=== PATIENT | female | born 1950 | race Caucasian/White ===

== ENCOUNTER 2019-03-13 17:01 | Observation (INO) ==
[2019-03-13 18:00] LABS: Basophils % 0.4 % (0.0-0.8); Eosinophils % 0.5 % (0.00-10.9); Hematocrit 41.4 VOL% (35.7-47.0); Hemoglobin 13.1 GM/DL (12.0-16.0); Immature Granulocytes % 0.3 %; Immature Granulocytes Absolute 0.02 #; Lymphocytes % 39.9 % (21.3-54.2); Mean Corpuscular HGB Conc 31.6 GM/DL (32-36); Mean Corpuscular Volume 89.2 FL (87-102); Mean Platelet Volume 11.6 FL (9.6-12.0); Monocytes % 9.1 % (1.7-12.7); Neutrophils % 49.8 % (38.7-73.9); Platelet Count 210 T/CUMM (130-400); Red Blood Count 4.64 MC/CUMM (3.8-5.5); White Blood Count 7.5 T/CUMM (4-12)
[2019-03-13 18:03] LABS: INR 0.9; PT Patient Result 10.3 SECS
[2019-03-13 18:28] LABS: Albumin 3.7 G/DL (3.4-5.0); Calcium 9.2 MG/DL (8.5-10.1); Osmolality,Calculated 279.4 MOS/KG (273-304); Total Protein 7.5 G/DL (6.4-8.3)
[2019-03-13 18:46] LABS: Barbiturates Screen,Urine Negative (Negative); Benzodiazepines Screen,Urine Negative (Negative); Cannabinoid Screen,Urine Negative (Negative); Opiate Screen,Urine Negative (Negative); Phencyclidine Screen,Urine Negative (Negative)
[2019-03-13 18:48] LABS: Apearance,Urine CLEAR (Clear); Bilirubin,Urine Negative (Negative); Blood, Urine Small mg/dL (Negative); Glucose,Urine (UA) Negative (Negative); Ketones,Urine Negative (Negative); Nitrite,Urine Negative (Negative); Protein,Urine Negative; RBC,Urine 3 /HPF (0-4); Urine Color Yellow (Yellow); Urine Specific Gravity 1.009 (1.001-1.035); Urine Urobilinogen < 2.0 EU/DL (0.2-1.0); WBC,Urine <1 /HPF (0-6)
[2019-03-13] MEDS ORDERED: ONDANSETRON 4 MG/2 ML VIAL IV PRN (19:57)
[2019-03-13] MEDS ORDERED: ACETAMINOPHEN 325 MG TABLET PO PRN (19:57)
[2019-03-13] MEDS ORDERED: LABETALOL 20 MG/4 ML SYRINGE IV PRN (19:57)
[2019-03-13] MEDS: clonazePAM 0.5 MG TABLET PO SCH (22:40)
[2019-03-13] MEDS: busPIRone 15 MG TABLET PO SCH (22:40)
[2019-03-13] MEDS: SODIUM CHLOR 0.45% KCL 20 MEQ 20 MEQ/1,000 ML BAG IV SCH (23:56)
[2019-03-14 02:28] LABS: Basophils % 0.4 % (0.0-0.8); Eosinophils % 0.5 % (0.00-10.9); Hematocrit 36.5 VOL% (35.7-47.0); Hemoglobin 11.6 GM/DL (12.0-16.0); Immature Granulocytes % 0.3 %; Immature Granulocytes Absolute 0.02 #; Lymphocytes # 2.7 10*3/uL (1.4-4.0); Lymphocytes % 34.7 % (21.3-54.2); Mean Corpuscular HGB Conc 31.8 GM/DL (32-36); Mean Corpuscular Volume 89.2 FL (87-102); Mean Platelet Volume 11.5 FL (9.6-12.0); Monocytes % 9.8 % (1.7-12.7); Neutrophils % 54.3 % (38.7-73.9); Platelet Count 184 T/CUMM (130-400); Red Blood Count 4.09 MC/CUMM (3.8-5.5); Red Cell Distribution Width 13.8 % (9.3-17.3); White Blood Count 7.6 T/CUMM (4-12)
[2019-03-14 02:50] LABS: Calcium 8.3 MG/DL (8.5-10.1); Osmolality,Calculated 278.4 MOS/KG (273-304); Risk Ratio 1.9; Thyroid Stimulating Hormone 2.21 uIU/ml (0.358-3.74)
[2019-03-14] MEDS ORDERED: PANTOPRAZOLE 40 MG TABLET PO SCH (09:00)
[2019-03-14] MEDS ORDERED: ASPIRIN EC 81 MG TABLET PO SCH (09:00)
[2019-03-14] MEDS: PANTOPRAZOLE 40 MG TABLET PO SCH (09:33)
[2019-03-14] MEDS: busPIRone 15 MG TABLET PO SCH ×2 (09:33→20:55)
[2019-03-14] MEDS: ATORVASTATIN 20 MG TABLET PO SCH (09:33)
[2019-03-14] MEDS: clonazePAM 0.5 MG TABLET PO SCH ×2 (09:33→20:55)
[2019-03-14] MEDS: POTASSIUM CHLORIDE 20 MEQ TABLET PO PRN (09:33)
[2019-03-14] MEDS: SODIUM CHLOR 0.45% KCL 20 MEQ 20 MEQ/1,000 ML BAG IV SCH ×3 (09:39→22:55)
[2019-03-14] MEDS ORDERED: LORazepam 1 MG TABLET PO ONE (11:14)
[2019-03-15] MEDS: SODIUM CHLOR 0.45% KCL 20 MEQ 20 MEQ/1,000 ML BAG IV SCH (02:59)
[2019-03-15] MEDS: busPIRone 15 MG TABLET PO SCH (08:48)
[2019-03-15] MEDS: clonazePAM 0.5 MG TABLET PO SCH (08:48)
[2019-03-15] MEDS: POTASSIUM CHLORIDE 20 MEQ TABLET PO PRN (08:48)
[2019-03-15] MEDS: PANTOPRAZOLE 40 MG TABLET PO SCH (08:49)
[2019-03-15] MEDS: ATORVASTATIN 20 MG TABLET PO SCH (08:49)
[2019-03-15] MEDS ORDERED: CLOPIDOGREL 75 MG TABLET PO SCH (09:00)
[2019-03-15 10:54] VITALS: BP 126/70
== END 2019-03-15 11:40 | disposition home or self-care (01) ==
LOC: N.ED 17:01 → INTOOBSV 19:42 → N.4E 20:44 → N.5E 20:46
PROVIDERS: ADMIT Emergency Medicine; ATTEND Emergency Medicine